=== PATIENT | male | born 1990 | race Caucasian/White ===

== ENCOUNTER 2016-04-15 15:09 | Emergency (ER) | payer BC ==
[2016-04-15 16:32] LABS: HEMOGLOBIN 14.6 gm/dl (14.0-17.5); RED BLOOD COUNT 4.87 M/UL (4.20-5.50); WHITE BLOOD COUNT 6.4 K/UL (4.5-11.0)
[2016-04-15 16:58] LABS: BUN/CREATININE RATIO 11 (0-10)
== END 2016-04-15 17:21 | disposition home or self-care (01) ==
LOC: ER1 15:09
PROVIDERS: Nurse Practitioner Family
DX: R07.9 Chest pain, unspecified (principal); R00.2 Palpitations; F17.290 Nicotine dependence, other tobacco product, uncomplicated
CPT/HCPCS: 36415; 71020; 80053; 82550; 82553; 83874; 84443; 84484; 85025; 93005; 99285

== ENCOUNTER 2016-07-09 16:33 | Emergency (ER) | payer BC ==
[2016-07-09 20:09] LABS: HEMOGLOBIN 14.7 gm/dl (14.0-17.5); RED BLOOD COUNT 4.85 M/UL (4.20-5.50); WHITE BLOOD COUNT 9.1 K/UL (4.5-11.0)
[2016-07-09 20:23] LABS: BUN/CREATININE RATIO 14 (0-10)
== END 2016-07-09 22:34 | disposition home or self-care (01) ==
LOC: ER1 16:33
PROVIDERS: Emergency Medicine
DX: R42 Dizziness and giddiness (principal); R51 Headache; H53.8 Other visual disturbances; I10 Essential (primary) hypertension; Z79.899 Other long term (current) drug therapy
CPT/HCPCS: 36415; 70450; 71020; 80053; 82962; 85025; 93005; 99284

== ENCOUNTER → 2020-04-30 | Outpatient (CLI) | payer BC ==
[~2020-04-30] MED LIST: DIASTAT 2.5 MG2.5 MG PR; TOPAMAX25 MG PO; TOPAMAX50 MG PO
== END ==
LOC: HEART 5 09:04
DX: R06.02 Shortness of breath (principal); R94.2 Abnormal results of pulmonary function studies; F17.210 Nicotine dependence, cigarettes, uncomplicated
CPT/HCPCS: 94010

== ENCOUNTER 2020-12-14 20:43 | Emergency (ER) | payer BC | END 2020-12-14 22:00 | disposition home or self-care (01) | LOC: ER1 20:43 | DX: M79.661 Pain in right lower leg (principal); I10 Essential (primary) hypertension | CPT/HCPCS: 85379; 99283 ==